=== PATIENT | female | born 1975 ===

== ENCOUNTER 2020-12-29 06:13 | Inpatient (IN) ==
[2020-12-29] MEDS ORDERED: CeFAZolin Syr 2,000MG/20 ML 2,000 MG/20 ML SYRINGE IVPB ONE (06:25)
[2020-12-29] MEDS ORDERED: Ringers Solution, Lactated 1,000 ML IVC SCH ×2 (06:30→07:15)
[2020-12-29] MEDS ORDERED: Ondansetron 4 MG/2 ML VIAL ONE (07:03)
[2020-12-29] MEDS ORDERED: *HR* Rocuronium Bromide 50 MG/5 ML VIAL ONE ×2 (07:03→09:07)
[2020-12-29] MEDS ORDERED: Lidocaine -MPF 2% 2 ML VIAL ONE ×2 (07:03→07:40)
[2020-12-29] MEDS ORDERED: Lidocaine HCL 4 ML Topical Solution (Laryng-O-Jet Kit Sterile Pak) TP ONE (07:04)
[2020-12-29] MEDS ORDERED: *HR* Phenylephrine 10 MG/ML VIAL ONE ×2 (07:11→11:22)
[2020-12-29] MEDS ORDERED: *HR* Heparin 5,000 UNIT/ML VIAL ONE ×2 (07:12→10:04)
[2020-12-29] MEDS ORDERED: *HR* Midazolam HCl 5 MG/5 ML VIAL IVP ONE (07:13)
[2020-12-29] MEDS ORDERED: Ondansetron 4 MG/2 ML VIAL IVP PRN (07:14)
[2020-12-29] MEDS ORDERED: Acetaminophen IV 1,000 MG/100 ML BAG IVPB PRN (07:14)
[2020-12-29] MEDS ORDERED: Protamine Sulfate 50 MG/5 ML VIAL IVP ONE (07:16)
[2020-12-29] MEDS ORDERED: Heparin 1,000 UNITS/500 mL 1,000 ML ONE (07:16)
[2020-12-29] MEDS ORDERED: *HR* FentaNYL (PF) 100 MCG/2 ML VIAL ONE ×4 (07:28→11:38)
[2020-12-29] MEDS ORDERED: ceFAZolin 1,000 MG, Sodium Chloride IRRigation 1,000 ML IR ONE (07:45)
[2020-12-29] MEDS ORDERED: Norepinephrine 4 MG/254 ML IV.SOLN IVC SCH (08:00)
[2020-12-29] MEDS ORDERED: Vancomycin 1,000 MG VIAL ONE (08:35)
[2020-12-29 10:26] LABS: ABG Base Excess -1 mEq/L (-2 to 3); ABG Chloride 102 mEq/L (98-107); ABG Glucose 176 mg/dL (60-95); ABG HCO3 24 mEq/L (21-27); ABG Ionized Calcium 1.21 mmol/L (1.15-1.35); ABG Oxygen Saturation 100 % (95-98); ABG PCO2 39 mmHg (35-45); ABG PO2 164 mmHg (85-104); ABG TCO2 25 mEq/L (20-26)
[2020-12-29] MEDS ORDERED: *HR* Propofol 200 MG/20 ML VIAL IVP ONE (10:48)
[2020-12-29] MEDS ORDERED: Sugammadex Sodium 200 MG/2 ML VIAL IV ONE (11:37)
[2020-12-29 11:47] LABS: ABG Base Excess -3 mEq/L (-2 to 3); ABG Chloride 107 mEq/L (98-107); ABG Glucose 192 mg/dL (60-95); ABG HCO3 23 mEq/L (21-27); ABG Ionized Calcium 1.07 mmol/L (1.15-1.35); ABG Oxygen Saturation 100 % (95-98); ABG PCO2 44 mmHg (35-45); ABG PH 7.33 pH Units (7.32-7.45); ABG PO2 180 mmHg (85-104); ABG TCO2 25 mEq/L (20-26)
[2020-12-29 12:39] LABS: ABG Base Excess 1 mEq/L (-2 to 3); ABG Chloride 103 mEq/L (98-107); ABG Glucose 191 mg/dL (60-95); ABG HCO3 27 mEq/L (21-27); ABG Ionized Calcium 1.18 mmol/L (1.15-1.35); ABG Oxygen Saturation 100 % (95-98); ABG PCO2 48 mmHg (35-45); ABG PH 7.35 pH Units (7.32-7.45); ABG PO2 197 mmHg (85-104); ABG TCO2 28 mEq/L (20-26)
[2020-12-29] MEDS ORDERED: *HR* HYDROMORPHONE 2 MG/ML VIAL ONE (12:40)
[2020-12-29] MEDS: *HR* HYDROmorphone PF 0.5 MG/0.5 ML SYRINGE IVP PRN ×4 (13:35→13:55)
[2020-12-29] MEDS ORDERED: Naloxone 0.4 MG/ML INJ IVP PRN (14:57)
[2020-12-29] MEDS: Ringers Solution, Lactated 1,000 ML IVC SCH ×2 (15:42→23:28)
[2020-12-29] MEDS: *HR* HYDROmorphone (PF) 1 MG/ML SYRINGE IVP PRN ×4 (15:43→23:25)
[2020-12-29] MEDS: CeFAZolin 2 GM/120 ML BAG IVPB SCH ×2 (15:57→23:27)
[2020-12-29] MEDS: *HR* Metoprolol 5 MG/5 ML VIAL IVP SCH ×2 (18:18→23:27)
[2020-12-29] MEDS: Famotidine 20 MG/2 ML VIAL IVP SCH (18:18)
[2020-12-29] MEDS: Nicotine 21 MG PATCH.TD24 TD SCH (23:26)
[2020-12-29] MEDS: Ketorolac 30 MG/ML VIAL IVP PRN (23:58)
[2020-12-30] MEDS: Ondansetron 4 MG/2 ML VIAL IVP PRN ×2 (04:56→22:38)
[2020-12-30] MEDS: *HR* Metoprolol 5 MG/5 ML VIAL IVP SCH ×4 (05:21→23:19)
[2020-12-30] MEDS: Famotidine 20 MG/2 ML VIAL IVP SCH ×2 (05:21→18:04)
[2020-12-30] MEDS: *HR* HYDROmorphone (PF) 1 MG/ML SYRINGE IVP PRN ×9 (05:22→23:19)
[2020-12-30 06:06] LABS: Basophils % 0.4 %; Eosinophils % 0.2 %; Hematocrit 28.4 % (35.3-44.9); Immature Granulocytes % 0.5 % (0-4); Lymphocytes # 1.9 K/mcL (0.6-4.6); Lymphocytes % 19.9 %; Mean Corpuscular HGB Conc 31.7 g/dL (31.6-35.5); Mean Corpuscular Volume 88.2 fL (83.0-100.0); Mean Platelet Volume 10.1 fL (9.4-12.4); Monocytes % 10.4 %; Platelet Count 224 K/mcL (140-400); Red Blood Count 3.22 M/mcL (3.82-4.97); Red Cell Distribution Width 15.7 % (11.5-14.5); Segmented Neutrophils % 68.6 %; White Blood Count 9.7 K/mcL (4.3-11.1)
[2020-12-30 06:10] LABS: Neutrophils # 6.7 K/mcL (1.6-8.9)
[2020-12-30 06:27] LABS: BUN/Creatinine Ratio 12 (6-26); Blood Urea Nitrogen 10 mg/dL (6-20); Calcium 8.4 mg/dL (8.6-10.3); Carbon Dioxide 26 mEq/L (23-29); Chloride 105 mEq/L (98-107); Glucose 126 mg/dL (70-105); Osmolality,Calculated 287 (280-300); Potassium 4.3 mEq/L (3.5-5.1); Sodium 138 mEq/L (136-145); eGFR For African Americans > 60 (> 60); eGFR For Non-African Americans > 60 (> 60)
[2020-12-30 06:43] LABS: Platelet Estimate Normal (Normal)
[2020-12-30] MEDS: Ringers Solution, Lactated 1,000 ML IVC SCH ×2 (07:50→11:03)
[2020-12-30] MEDS: CeFAZolin 2 GM/120 ML BAG IVPB SCH (07:50)
[2020-12-30 09:31] LABS: ABG Base Excess 0 mEq/L (-2 to 3); ABG Chloride 103 mEq/L (98-107); ABG Glucose 119 mg/dL (60-95); ABG HCO3 24 mEq/L (21-27); ABG Ionized Calcium 1.06 mmol/L (1.15-1.35); ABG Oxygen Saturation 100 % (95-98); ABG PCO2 37 mmHg (35-45); ABG PH 7.43 pH Units (7.32-7.45); ABG PO2 169 mmHg (85-104); ABG TCO2 26 mEq/L (20-26)
[2020-12-30] MEDS: Nicotine 21 MG PATCH.TD24 TD SCH (22:38)
[2020-12-31] MEDS: Ketorolac 30 MG/ML VIAL IVP PRN ×3 (00:40→23:20)
[2020-12-31] MEDS: *HR* HYDROmorphone (PF) 1 MG/ML SYRINGE IVP PRN ×9 (02:08→22:15)
[2020-12-31] MEDS: Ondansetron 4 MG/2 ML VIAL IVP PRN ×3 (04:43→18:11)
[2020-12-31] MEDS: Ringers Solution, Lactated 1,000 ML IVC SCH (04:48)
[2020-12-31] MEDS: *HR* Metoprolol 5 MG/5 ML VIAL IVP SCH ×3 (06:05→18:11)
[2020-12-31] MEDS: Famotidine 20 MG/2 ML VIAL IVP SCH ×2 (06:05→18:12)
[2020-12-31 14:53] LABS: Hematocrit 30.4 % (35.3-44.9); Mean Corpuscular HGB Conc 32.9 g/dL (31.6-35.5); Mean Corpuscular Hemoglobin 28.8 pg (28.0-33.3); Mean Corpuscular Volume 87.6 fL (83.0-100.0); Mean Platelet Volume 10.6 fL (9.4-12.4); Platelet Count 233 K/mcL (140-400); Red Blood Count 3.47 M/mcL (3.82-4.97); Red Cell Distribution Width 15.9 % (11.5-14.5)
[2020-12-31 15:02] LABS: White Blood Count 16.5 K/mcL (4.3-11.1)
[2020-12-31 15:13] LABS: BUN/Creatinine Ratio 19 (6-26); Blood Urea Nitrogen 14 mg/dL (6-20); Carbon Dioxide 28 mEq/L (23-29); Chloride 103 mEq/L (98-107); Glucose 134 mg/dL (70-105); Osmolality,Calculated 290 (280-300); Potassium 4.2 mEq/L (3.5-5.1); Sodium 139 mEq/L (136-145); eGFR For African Americans > 60 (> 60); eGFR For Non-African Americans > 60 (> 60)
[2020-12-31] MEDS ORDERED: Acetaminophen IV 1,000 MG/100 ML BAG IVPB ONE (19:09)
[2020-12-31] MEDS: Nicotine 21 MG PATCH.TD24 TD SCH (19:45)
[2021-01-01] MEDS: *HR* Metoprolol 5 MG/5 ML VIAL IVP SCH ×5 (00:23→23:57)
[2021-01-01] MEDS: Ondansetron 4 MG/2 ML VIAL IVP PRN (00:23)
[2021-01-01] MEDS: *HR* HYDROmorphone (PF) 1 MG/ML SYRINGE IVP PRN ×9 (00:24→23:59)
[2021-01-01] MEDS: Ringers Solution, Lactated 1,000 ML IVC SCH ×2 (02:08→23:56)
[2021-01-01] MEDS: Famotidine 20 MG/2 ML VIAL IVP SCH ×2 (04:19→17:05)
[2021-01-01 11:32] LABS: Hematocrit 27.9 % (35.3-44.9); Hemoglobin 8.7 g/dL (11.5-15.4); Mean Corpuscular HGB Conc 31.2 g/dL (31.6-35.5); Mean Corpuscular Hemoglobin 27.8 pg (28.0-33.3); Mean Corpuscular Volume 89.1 fL (83.0-100.0); Mean Platelet Volume 10.2 fL (9.4-12.4); Platelet Count 235 K/mcL (140-400); Red Blood Count 3.13 M/mcL (3.82-4.97); Red Cell Distribution Width 16.1 % (11.5-14.5); White Blood Count 12.3 K/mcL (4.3-11.1)
[2021-01-01 11:50] LABS: BUN/Creatinine Ratio 23 (6-26); Blood Urea Nitrogen 17 mg/dL (6-20); Carbon Dioxide 28 mEq/L (23-29); Chloride 103 mEq/L (98-107); Glucose 104 mg/dL (70-105); Osmolality,Calculated 296 (280-300); Potassium 3.9 mEq/L (3.5-5.1); Sodium 142 mEq/L (136-145); eGFR For African Americans > 60 (> 60); eGFR For Non-African Americans > 60 (> 60)
[2021-01-01] MEDS: Nicotine 21 MG PATCH.TD24 TD SCH (19:33)
[2021-01-01] MEDS: Ketorolac 30 MG/ML VIAL IVP PRN (19:39)
[2021-01-02] MEDS: *HR* HYDROmorphone (PF) 1 MG/ML SYRINGE IVP PRN ×8 (03:19→23:11)
[2021-01-02] MEDS: Famotidine 20 MG/2 ML VIAL IVP SCH ×2 (05:42→18:17)
[2021-01-02] MEDS: *HR* Metoprolol 5 MG/5 ML VIAL IVP SCH ×4 (05:44→23:58)
[2021-01-02] MEDS: Nicotine 21 MG PATCH.TD24 TD SCH (21:10)
[2021-01-02] MEDS: Ringers Solution, Lactated 1,000 ML IVC SCH (21:11)
[2021-01-03] MEDS: *HR* HYDROmorphone (PF) 1 MG/ML SYRINGE IVP PRN ×10 (01:13→22:33)
[2021-01-03] MEDS: *HR* Metoprolol 5 MG/5 ML VIAL IVP SCH ×4 (05:39→23:36)
[2021-01-03] MEDS: Famotidine 20 MG/2 ML VIAL IVP SCH ×2 (05:40→18:02)
[2021-01-03 07:20] LABS: Mean Corpuscular HGB Conc 32.3 g/dL (31.6-35.5); Mean Corpuscular Hemoglobin 28.8 pg (28.0-33.3); Mean Platelet Volume 10.6 fL (9.4-12.4); Platelet Count 192 K/mcL (140-400); Red Blood Count 1.46 M/mcL (3.82-4.97); Red Cell Distribution Width 16.1 % (11.5-14.5); White Blood Count 11.8 K/mcL (4.3-11.1)
[2021-01-03 07:28] LABS: Hemoglobin 4.2 g/dL (11.5-15.4)
[2021-01-03] MEDS ORDERED: 0.9 % Sodium Chloride 250 ML ONE ×2 (09:05→12:48)
[2021-01-03] MEDS: Ringers Solution, Lactated 1,000 ML IVC SCH (14:38)
[2021-01-03] MEDS: Nicotine 21 MG PATCH.TD24 TD SCH (20:06)
[2021-01-04] MEDS: *HR* HYDROmorphone (PF) 1 MG/ML SYRINGE IVP PRN ×11 (00:51→23:44)
[2021-01-04 03:25] LABS: Basophils # 0.1 K/mcL (0.0-0.2); Basophils % 0.5 %; Eosinophils # 0.5 K/mcL (0.0-0.6); Eosinophils % 3.2 %; Hematocrit 24.5 % (35.3-44.9); Immature Granulocytes % 2.5 % (0-4); Lymphocytes # 2.3 K/mcL (0.6-4.6); Lymphocytes % 15.2 %; Mean Corpuscular HGB Conc 32.7 g/dL (31.6-35.5); Mean Corpuscular Hemoglobin 28.9 pg (28.0-33.3); Mean Corpuscular Volume 88.4 fL (83.0-100.0); Mean Platelet Volume 10.1 fL (9.4-12.4); Monocytes # 1.1 K/mcL (0.0-1.3); Monocytes % 7.1 %; Nucleated Red Blood Cells 0.5 /100 WBC (0); Platelet Count 211 K/mcL (140-400); Red Blood Count 2.77 M/mcL (3.82-4.97); Red Cell Distribution Width 16.2 % (11.5-14.5); Segmented Neutrophils % 71.5 %; White Blood Count 15.4 K/mcL (4.3-11.1)
[2021-01-04 03:47] LABS: Alanine Aminotransferase 4 Units/L (7-52); Albumin 2.9 g/dL (3.5-5.7); Albumin/Globulin Ratio 1.3 (1.1-2.2); Alkaline Phosphatase 47 Units/L (34-104); Aspartate Amino Transferase 11 Units/L (13-39); BUN/Creatinine Ratio 23 (6-26); Bilirubin,Total 0.5 mg/dL (0.3-1.0); Blood Urea Nitrogen 13 mg/dL (6-20); Calcium 8.1 mg/dL (8.6-10.3); Carbon Dioxide 26 mEq/L (23-29); Chloride 106 mEq/L (98-107); Globulin 2.3 g/dL (2.4-3.5); Glucose 91 mg/dL (70-105); Osmolality,Calculated 286 (280-300); Potassium 3.7 mEq/L (3.5-5.1); Sodium 138 mEq/L (136-145); Total Protein 5.2 g/dL (6.4-8.9); eGFR For African Americans > 60 (> 60); eGFR For Non-African Americans > 60 (> 60)
[2021-01-04] MEDS: *HR* Metoprolol 5 MG/5 ML VIAL IVP SCH ×4 (06:06→23:44)
[2021-01-04] MEDS: Famotidine 20 MG/2 ML VIAL IVP SCH ×2 (06:07→17:29)
[2021-01-04] MEDS: Nicotine 21 MG PATCH.TD24 TD SCH (20:27)
[2021-01-05] MEDS: *HR* HYDROmorphone (PF) 1 MG/ML SYRINGE IVP PRN ×7 (02:05→21:45)
[2021-01-05 04:44] LABS: Hematocrit 23.3 % (35.3-44.9); Hemoglobin 7.8 g/dL (11.5-15.4); Mean Corpuscular HGB Conc 33.5 g/dL (31.6-35.5); Mean Corpuscular Hemoglobin 29.7 pg (28.0-33.3); Mean Corpuscular Volume 88.6 fL (83.0-100.0); Mean Platelet Volume 9.6 fL (9.4-12.4); Platelet Count 219 K/mcL (140-400); Red Blood Count 2.63 M/mcL (3.82-4.97); Red Cell Distribution Width 17.1 % (11.5-14.5); White Blood Count 13.4 K/mcL (4.3-11.1)
[2021-01-05 04:59] LABS: BUN/Creatinine Ratio 16 (6-26); Blood Urea Nitrogen 8 mg/dL (6-20); Calcium 8.1 mg/dL (8.6-10.3); Carbon Dioxide 25 mEq/L (23-29); Chloride 105 mEq/L (98-107); Glucose 76 mg/dL (70-105); Osmolality,Calculated 281 (280-300); Potassium 3.4 mEq/L (3.5-5.1); Sodium 137 mEq/L (136-145); eGFR For African Americans > 60 (> 60); eGFR For Non-African Americans > 60 (> 60)
[2021-01-05] MEDS: *HR* Metoprolol 5 MG/5 ML VIAL IVP SCH ×3 (06:13→16:24)
[2021-01-05] MEDS: Famotidine 20 MG/2 ML VIAL IVP SCH ×2 (06:21→16:24)
[2021-01-05] MEDS ORDERED: Isovue-370 500 ML BOTTLE IVP ONE (10:20)
[2021-01-05] MEDS: Nicotine 21 MG PATCH.TD24 TD SCH (19:41)
[2021-01-06] MEDS: *HR* Metoprolol 5 MG/5 ML VIAL IVP SCH ×4 (00:12→17:06)
[2021-01-06] MEDS: *HR* HYDROmorphone (PF) 1 MG/ML SYRINGE IVP PRN ×9 (00:12→19:22)
[2021-01-06] MEDS: Famotidine 20 MG/2 ML VIAL IVP SCH ×2 (05:35→17:06)
[2021-01-06] MEDS ORDERED: Lidocaine -MPF 2% 5 ML VIAL ONE (13:41)
[2021-01-06 16:14] VITALS: BP 145/76; PULSE 75; TEMP 98.4; O2SAT 91
== END 2021-01-06 19:40 | disposition home or self-care (01) | DRG 169 ==
LOC: SAMDAY 06:13 → 2NNU 14:58
PROVIDERS: ADMIT Surgery Vascular Surgery; ATTEND Surgery Vascular Surgery
PROC: ENDOEBX (2021-01-06 14:00)